=== PATIENT | female | born 1955 | race Caucasian/White ===

== ENCOUNTER 2017-12-16 04:05 | Emergency (ER) | payer OTHER ==
[~2017-12-16] VITALS: Ht 162.6 cm; Wt 85.0 kg
[2017-12-16 04:36] VITALS: BP 162/73; PULSE 19; PULSE 90; RESP 21; TEMP 99.2; O2SAT 96
[2017-12-16] MEDS ORDERED: AUGM875T3 PO (04:44)
[2017-12-16] MEDS ORDERED: FLUT1SPR5 EACH NARE (04:44)
--- NOTE | 2017-12-16 04:49 | PD ---
HPI Chief Complaint: Cold / Flu Symptoms Time Seen by Provider: 04:44 Travel History International Travel<30 days: No Contact w/Intl Traveler<30days: No Traveled to known affect area: No History of Present Illness HPI 62-year-old female who recently traveled from [place] presents for evaluation of nasal congestion, sinus pressure, cough. Symptoms started 1 week ago. The cough is productive with yellow sputum. Denies fevers, chills, shortness of breath. She reports that she was seen by her primary care physician about this several days ago and prescribed prednisone and Zyrtec but her symptoms have worsened and this is what prompted evaluation. She has no other complaints at this time. [facility] Past Medical History Cancer: Yes (CERVICAL ) High Cholesterol: Yes Past Surgical History Abdominal Surgery: Yes Hysterectomy: Yes Social History Alcohol Use: Yes Tobacco Use: No Substance Use: No Allergies-Medications (Allergen,Severity, Reaction): Coded Allergies: morphine (Verified Allergy, Unknown, 12/16/17) Reported Meds & Prescriptions Reported Meds & Active Scripts Active Augmentin (Amoxicillin-Clavulanate) 875-125 Mg Tab 1 Tab PO BID 10 Days Flonase Nasal [place] (Fluticasone Nasal [place]) 50 Mcg/Act [place] 100 Mcg EACH NARE BID Review of Systems Except as stated in HPI: all other systems reviewed are Neg Physical Exam Narrative GENERAL: Well-nourished female no acute distress SKIN: Warm and dry. HEAD: Atraumatic. Normocephalic. EYES: Pupils equal and round. No scleral icterus. No injection or drainage. ENT: No nasal bleeding or discharge. Mucous membranes pink and moist. Tender to palpation over the maxillary sinuses NECK: Trachea midline. No JVD. CARDIOVASCULAR: Regular rate and rhythm. No murmur appreciated. RESPIRATORY: No accessory muscle use. Clear to auscultation. Breath sounds equal bilaterally. Data Data Last Documented VS Vital Signs Date Time Temp Pulse Resp B/P (MAP) Pulse Ox O2 Delivery O2 Flow Rate FiO2 12/16/17 04:36 99.2 90 21 162/73 (102) 96 Room Air Orders Orders Oxymetazoline 0.05% [place] (Afrin 0.0 (12/16/17 05:00) Ed Discharge Order (12/16/17 04:46) MDM Medical Decision Making Medical Screen Exam Complete: Yes Emergency Medical Condition: Yes Medical Record Reviewed: Yes Differential Diagnosis Sinusitis, bronchitis, pneumonia Narrative Course The patient appears to have rhinosinusitis. She will be discharged with Augmentin and Flonase. A dose of Afrin will be provided prior to discharge. Diagnosis Primary Impression: Acute rhinosinusitis Additional Instructions: . Medication as prescribed. Continue Zyrtec as prescribed. Return for any emergent medical conditions. Med/Other Pt SpecificInfo: Prescription(s) given Scripts Amoxicillin-Clavulanate (Augmentin) 875-125 Mg Tab 1 TAB PO BID for Infection for 10 Days, #20 TAB 0 Refills Prov: Francisca Rai MD 12/16/17 Fluticasone Nasal [place] (Flonase Nasal [place]) 50 Mcg/Act [place] 100 MCG EACH NARE BID for Allergies, #1 BOTTLE 0 Refills Prov: Francisca Rai MD 12/16/17 Disposition: 01 DISCHARGE HOME Condition: Stable Dilip Flores Dec 16, 2017 04:48
[2017-12-16] MEDS ORDERED: OXYMETAZOLINE HCL 0.05% 15 ML NASAL SPRAY NASAL ONE (05:00)
== END 2017-12-16 05:00 | disposition home or self-care (01) ==
LOC: NEPD 04:05
DX: J01.90 Acute sinusitis, unspecified (principal)
CPT/HCPCS: 99283